=== PATIENT | male | born 1985 | race African-American/Black ===

== ENCOUNTER 2017-09-30 19:50 | Emergency (ER) | payer OTHER ==
[2017-09-30 19:50] VITALS: O2SAT 100
[2017-09-30] MEDS ORDERED: ceFAZolin 2 GM PREMIX 50 ML ONE (19:53)
[2017-09-30] MEDS ORDERED: DIPHTH/TETANUS/ACEL PERTUSSIS (BOOSTER) 0.5 ML VIAL/PFS IM ONE (19:53)
[2017-09-30 20:24] LABS: AUTOMATED NEUTROPHIL # 3.3 TH/MM3 (1.8-7.7); BASOPHIL % 0.5 % (0.0-2.0); EOSINOPHIL # 0.4 TH/MM3 (0-0.4); EOSINOPHIL % 7.2 % (0.0-4.0); HEMATOCRIT 39.7 % (39.0-51.0); HEMOGLOBIN 13.3 GM/DL (13.0-17.0); LYMPH % 27.6 % (9.0-44.0); LYMPHOCYTE # 1.7 TH/MM3 (1.0-4.8); MEAN CELL VOLUME 87.5 FL (80.0-100.0); MEAN CORPUSCULAR HEMOGLOBIN 29.4 PG (27.0-34.0); MEAN CORPUSCULAR HGB CONC 33.6 % (32.0-36.0); MEAN PLATELET VOLUME 8.7 FL (7.0-11.0); MONO % 8.9 % (0.0-8.0); MONOCYTE # 0.5 TH/MM3 (0-0.9); NEUT % 55.8 % (16.0-70.0); PLATELET COUNT 198 TH/MM3 (150-450); RED BLOOD COUNT 4.53 MIL/MM3 (4.50-5.90); RED CELL DISTRIBUTION WIDTH 13.7 % (11.6-17.2)
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
[2017-09-30] MEDS ORDERED: IOHEXOL 350 MG/ML 10 ML VIAL (for RAD DIAG) IVCONTRAST ONE (20:39)
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
[2017-09-30] MEDS ORDERED: LIDOCAINE 2%/EPINEPHrine 1:100,000 20ML MDV NERV BLOCK ONE (21:00)
[2017-09-30 21:05] LABS: INTERNATIONAL NORMALIZED RATIO 1.1 RATIO
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
[2017-09-30] MEDS ORDERED: MORPHINE SULFATE 2 MG/ML SYRINGE IV PUSH ONE (21:45)
[2017-09-30 22:30] VITALS: BP 164/91; PULSE 82; RESP 18; O2SAT 99
[2017-09-30] MEDS ORDERED: oxyCODONE/ACETAMINOPHEN 10 MG/325 MG TAB PO ONE (22:45)
[2017-09-30] MEDS ORDERED: CEPH-460 PO (23:11)
[2017-09-30] MEDS ORDERED: TRAM50TA PO (23:12)
== END 2017-09-30 23:42 ==
LOC: EDBD 19:50 → NEPI 19:50 → NEPE 23:42
DX: S11.91XA Laceration without foreign body of unspecified part of neck, initial encounter (principal); S31.010A Laceration without foreign body of lower back and pelvis without penetration into retroperitoneum, initial encounter; S31.113A Laceration without foreign body of abdominal wall, right lower quadrant without penetration into peritoneal cavity, initial encounter; S41.011A Laceration without foreign body of right shoulder, initial encounter; X99.9XXA Assault by unspecified sharp object, initial encounter; Y92.149 Unspecified place in prison as the place of occurrence of the external cause; I10 Essential (primary) hypertension; Z23 Encounter for immunization; Z88.8 Allergy status to other drugs, medicaments and biological substances; Z79.899 Other long term (current) drug therapy
CPT/HCPCS: 12004; 70486; 70498; 71045; 71260; 74177; 80048; 85025; 85610; 85730; 86850; 86900; 86901; 90471; 90715; 96374; 96375; 99291; J0690; J3010; Q9967; G0390